=== PATIENT | female | born 2000 | race African-American/Black ===

== ENCOUNTER 2022-07-18 06:36 | Emergency (ER) | payer OTHER ==
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
[2022-07-18 07:31] VITALS: BP 107/69; TEMP 97.7; O2SAT 100
== END 2022-07-18 07:20 | disposition home or self-care (01) ==
LOC: ER 06:36
DX: Z04.1 Encounter for examination and observation following transport accident (principal); V57.6XXA Passenger in pick-up truck or van injured in collision with fixed or stationary object in traffic accident, initial encounter
CPT/HCPCS: 99283